=== PATIENT | female | born 1990 | race African-American/Black ===

== ENCOUNTER 2016-04-29 16:36 | Observation (INO) | payer BC, OTHER ==
[2014-08-22 22:21] VITALS: BP 156/106
[~2016-04-29 16:36] MED LIST: METF500T4 PO; birth control
[2016-04-29] MEDS ORDERED: IV RINGERS,LACTATED 1000ML 1,000 ML IV SCH (17:16)
[2016-04-29 18:41] LABS: BASO % 0 % (0-3); EOS % 1 % (0-3); HEMATOCRIT 30.8 % (36.0-47.0); HEMOGLOBIN 10.3 g/dL (12.0-15.5); LYMPH % 19 % (24-48); MEAN CORPUSCULAR HEMOGLOBIN 26 pg (25-35); MEAN CORPUSCULAR HGB CONC 33 g/dL (31-37); MEAN CORPUSCULAR VOLUME 77 fL (79-100); MONO % 8 % (0-9); NEUT % 72 % (31-73); PLATELET COUNT 308 x10^3/uL (140-400); RED BLOOD COUNT 4.01 x10^6/uL (3.50-5.40); RED CELL DISTRIBUTION WIDTH 15.3 % (11.5-14.5); WHITE BLOOD COUNT 10.4 x10^3/uL (4.0-11.0)
[2016-04-29 18:54] LABS: CREATININE 0.8 mg/dL (0.6-1.0); GFR 107.6; POTASSIUM 3.7 mmol/L (3.5-5.1)
[2016-04-29 19:01] LABS: ALBUMIN 2.5 g/dL (3.4-5.0); ALBUMIN/GLOBULIN RATIO 0.6 (1.0-1.7); TOTAL BILIRUBIN 0.3 mg/dL (0.2-1.0); TOTAL PROTEIN 6.9 g/dL (6.4-8.2)
[2016-05-01 14:13] LABS: PROTEIN 24 HR UR 758.7 mg/24 hr (30.0-150.0); TOTAL SERUM CREATININE 0.78 mg/dL (0.57-1.00); TOTAL URINE CREATININE 199.9 mg/dL (Not Estab.)
== END 2016-04-29 20:20 | disposition home or self-care (01) ==
LOC: 3 SO LND 16:36
PROVIDERS: ADMIT Obstetrics & Gynecology; ATTEND Obstetrics & Gynecology
DX: O12.13 Gestational proteinuria, third trimester (principal); O26.893 Other specified pregnancy related conditions, third trimester; R03.0 Elevated blood-pressure reading, without diagnosis of hypertension; Z3A.37 37 weeks gestation of pregnancy
CPT/HCPCS: 36415; 80053; 82575; 84156; 85027; G0378; G0379

== ENCOUNTER 2017-01-12 10:09 | Emergency (ER) | payer BC, OTHER ==
[~2017-01-12] VITALS: Ht 170.2 cm; Wt 125.6 kg
[2017-01-12 10:25] VITALS: BP 173/81
[2017-01-12 11:15] LABS: BASO # 0.1 x10^3/uL (0.0-0.2); BASO % 1 % (0-3); EOS % 2 % (0-3); HEMATOCRIT 40.9 % (36.0-47.0); LYMPH # 2.3 x10^3/uL (1.0-4.8); LYMPH % 28 % (24-48); MEAN CORPUSCULAR HEMOGLOBIN 28 pg (25-35); MEAN CORPUSCULAR HGB CONC 34 g/dL (31-37); MEAN CORPUSCULAR VOLUME 81 fL (79-100); MONO % 8 % (0-9); NEUT % 61 % (31-73); PLATELET COUNT 296 x10^3/uL (140-400); RED BLOOD COUNT 5.08 x10^6/uL (3.50-5.40); RED CELL DISTRIBUTION WIDTH 14.3 % (11.5-14.5); WHITE BLOOD COUNT 8.3 x10^3/uL (4.0-11.0)
[2017-01-12 11:24] LABS: CALCIUM 9.6 mg/dL (8.5-10.1); CREATININE 1.1 mg/dL (0.6-1.0); GFR 73.8
[2017-01-12 11:29] LABS: ALBUMIN 3.4 g/dL (3.4-5.0); ALBUMIN/GLOBULIN RATIO 0.7 (1.0-1.7); TOTAL BILIRUBIN 0.4 mg/dL (0.2-1.0)
--- NOTE | 2017-01-12 12:02 | PHYS DOC ---
Past Medical History Past Medical History: Diabetes-Type II Past Surgical History: No Surgical History Alcohol Use: None Drug Use: None Adult General Chief Complaint Chief Complaint: ABSCESS [facility] HPI Patient is a 26 year old female presents to the emergency department stating that she has an abscess on her upper abdomen the epigastric area and on the right side of her neck on the anterior part. Patient also states that she has been having high blood pressure and is on medication however medication gives her headache and so she stopped taking the medication. She states this was provided to her by her RN INTERN after . Patient also states that she has a history of diabetes in the family and has had recent urinary frequency with increased thirst. Patient states she has not followed up with a primary care physician in the above symptoms. Review of Systems Review of Systems Constitutional: Denies fever or chills [] Eyes: Denies change in visual acuity, redness, or eye pain [] HENT: Denies nasal congestion or sore throat [] Respiratory: Denies cough or shortness of breath [] Cardiovascular: No additional information not addressed in HPI [] GI: Denies abdominal pain, nausea, vomiting, bloody stools or diarrhea [] : Denies dysuria or hematuria [] Musculoskeletal: Denies back pain or joint pain [] Integument: Denies rash or skin lesions. Complaint of abscess on the abdomen and anterior neck. Neurologic: Denies headache, focal weakness or sensory changes [] Endocrine: polyuria or polydipsia [] Current Medications Current Medications Current Medications Medications (Trade) Dose Ordered Sig/[facility] Start Time Stop Time Status Last Admin Dose Admin Sodium Chloride 1,000 ml @ 1,000 mls/hr 1X ONCE 01/12/17 12:45 01/12/17 13:44 01/12/17 12:05 1,000 MLS/HR Allergies Allergies Allergies Coded Allergies Type Severity Reaction Last Updated Verified No Known Drug Allergies 09/20/13 No Physical Exam Physical Exam Constitutional: Well developed, well nourished, no acute distress, non-toxic appearance. [] HENT: Normocephalic, atraumatic, bilateral external ears normal, oropharynx moist, no oral exudates, nose normal. [] Eyes: PERRLA, EOMI, conjunctiva normal, no discharge. [] Neck: Normal range of motion, no tenderness, supple, no stridor. [] Cardiovascular:Heart rate regular rhythm, no murmur [] Lungs & Thorax: Bilateral breath sounds clear to auscultation [] Skin: Warm, dry, no erythema, no rash. Patient with 2 areas noted one on the anterior neck, and the epigastric area that appears to be less than a quarter size in diameter no redness warmth or tenderness noted however the areas do appear to be nonfluctuant. No drainage noted. Extremities: No tenderness, no cyanosis, no clubbing, ROM intact, no edema. [] Neurologic: Alert and oriented X 3, normal motor function, normal sensory function, no focal deficits noted. [] Psychologic: Affect normal, judgement normal, mood normal. [] Current Patient Data Vital Signs Vital Signs Date Time Temp Pulse Resp B/P (MAP) Pulse Ox O2 Delivery O2 Flow Rate FiO2 01/12/17 10:25 98.4 102 18 97 Room Air 98.4 Lab Values Laboratory Tests Test 01/12/17 10:57 01/12/17 11:10 Glucose (Fingerstick) 365 mg/dL (70-99) H White Blood Count 8.3 x10^3/uL (4.0-11.0) Red Blood Count 5.08 x10^6/uL (3.50-5.40) Hemoglobin 14.0 g/dL (12.0-15.5) Hematocrit 40.9 % (36.0-47.0) Mean Corpuscular Volume 81 fL (79-100) Mean Corpuscular Hemoglobin 28 pg (25-35) Mean Corpuscular Hemoglobin Concent 34 g/dL (31-37) Red Cell Distribution Width 14.3 % (11.5-14.5) Platelet Count 296 x10^3/uL (140-400) Neutrophils (%) (Auto) 61 % (31-73) Lymphocytes (%) (Auto) 28 % (24-48) Monocytes (%) (Auto) 8 % (0-9) Eosinophils (%) (Auto) 2 % (0-3) Basophils (%) (Auto) 1 % (0-3) Neutrophils # (Auto) 5.1 x10^3uL (1.8-7.7) Lymphocytes # (Auto) 2.3 x10^3/uL (1.0-4.8) Monocytes # (Auto) 0.6 x10^3/uL (0.0-1.1) Eosinophils # (Auto) 0.2 x10^3/uL (0.0-0.7) Basophils # (Auto) 0.1 x10^3/uL (0.0-0.2) Sodium Level 139 mmol/L (136-145) Potassium Level 4.0 mmol/L (3.5-5.1) Chloride Level 100 mmol/L (98-107) Carbon Dioxide Level 24 mmol/L (21-32) Anion Gap 15 (6-14) H Blood Urea Nitrogen 12 mg/dL (7-20) Creatinine 1.1 mg/dL (0.6-1.0) H Estimated GFR (Cockcroft-Gault) 73.8 BUN/Creatinine Ratio 11 (6-20) Glucose Level 375 mg/dL (70-99) H Calcium Level 9.6 mg/dL (8.5-10.1) Total Bilirubin 0.4 mg/dL (0.2-1.0) Aspartate Amino Transferase (AST) 16 U/L (15-37) Alanine Aminotransferase (ALT) 25 U/L (14-59) Alkaline Phosphatase 104 U/L (46-116) Total Protein 8.0 g/dL (6.4-8.2) Albumin 3.4 g/dL (3.4-5.0) Albumin/Globulin Ratio 0.7 (1.0-1.7) L Laboratory Tests 01/12/17 11:10 Laboratory Tests 01/12/17 11:10 EKG EKG [] Radiology/Procedures Radiology/Procedures [] Course & Med Decision Making Course & Med Decision Making Pertinent Labs and Imaging studies reviewed. (See chart for details) Patient's bedside glucose was elevated, CBC CMP was obtained she was provided with IV fluids 1 L she'll be discharged home on metformin as well as Bactrim. Patient was recommended to use warm moist packs on the abscessed areas. Recommended following up with a primary care physician for further evaluation of her glucose as well as the abscess. Patient agrees with discharge instructions treatment regimens and follow-up recommendations. Since symptoms to return back to emergency department as been provided. All questions and concerns been answered at patient's bedside. [] Dragon Disclaimer Dragon Disclaimer This electronic medical record was generated, in whole or in part, using a voice recognition dictation system. Departure Departure Impression: Primary Impression: Abscess Additional Impression: Hyperglycemia Disposition: 01 HOME, SELF-CARE Condition: STABLE Referrals: NO PCP (PCP) Patient Instructions: Abscess, [id number], Hyperglycemia, [id number] Additional Instructions: Your glucose was elevated here in the emergency department as well as her blood pressure. You will be placed on metformin to help bring her glucoses down within normal limits however you will need to monitor her glucoses and follow-up the primary care physician for further treatment and evaluation. Bactrim for the abscessed areas. This medication will be taken twice daily. Warm moist packs to the areas 4-5 times a day. Follow-up with primary care physician within the next 3-5 days. Return back to emergency prior signs symptoms of become worse. Scripts Sulfamethoxazole/Trimethoprim (BACTRIM DS TABLET) 1 Each Tablet 1 TAB PO BID, #20 TAB Prov: JOANNE JOSHUA APRN 01/12/17 Gabapentin (GABAPENTIN) 300 Mg Capsule 300 MG PO BID, #30 CAP Prov: JOANNE JOSHUA APRN 01/12/17 Problem Qualifiers JOANNE JOSHUA APRN Jan 12, 2017 12:02
[2017-01-12] MEDS ORDERED: SULF1TAB24 PO (12:24)
[2017-01-12] MEDS ORDERED: GABA-586 PO (12:24)
[2017-01-12] MEDS ORDERED: IV NORMAL SALINE 1000ML BAG 1,000 ML IV ONE (12:45)
== END 2017-01-12 13:12 | disposition home or self-care (01) ==
LOC: ER 10:09
DX: L02.211 Cutaneous abscess of abdominal wall (principal); E11.65 Type 2 diabetes mellitus with hyperglycemia
CPT/HCPCS: 36415; 80053; 82962; 85025; 96360; 99284; J7030

== ENCOUNTER → 2017-07-04 | Outpatient (CLI) | payer BC | END | disposition home or self-care (01) | LOC: US 08:03 | DX: O09.92 Supervision of high risk pregnancy, unspecified, second trimester (principal); O26.842 Uterine size-date discrepancy, second trimester; Z3A.20 20 weeks gestation of pregnancy | CPT/HCPCS: 76805 ==

== ENCOUNTER 2017-09-22 10:59 | Observation (INO) | payer OTHER ==
[2017-09-22] MEDS ORDERED: IV RINGERS,LACTATED 1000ML 1,000 ML IV (11:45)
[2017-09-22 11:50] LABS: AMNIO PT NEGATIVE; NEG OBC AMNIO NEG; POS OBC AMNIO POS
[2017-09-22 11:55] LABS: BILIRUBIN,URINE NEGATIVE (NEG); CLARITY,URINE CLOUDY; COLOR,URINE YELLOW; GLUCOSE,URINE 100 mg/dL (NEG); NITRITE,URINE NEGATIVE (NEG); PH,URINE 6.5; PROTEIN,URINE NEGATIVE (NEG-TRACE)
[2017-09-22 12:24] LABS: BACTERIA,URINE MODERATE /HPF (0-FEW); RBC,URINE OCC /HPF (0-2); SQUAMOUS EPITHELIAL CELL,UR MANY /LPF
== END 2017-09-22 12:30 | disposition home or self-care (01) ==
LOC: 3 SO LND 10:59
DX: O26.893 Other specified pregnancy related conditions, third trimester (principal); N89.8 Other specified noninflammatory disorders of vagina; R10.30 Lower abdominal pain, unspecified; Z3A.32 32 weeks gestation of pregnancy
CPT/HCPCS: 36415; 81001; 84112; 87086; G0378; G0379

== ENCOUNTER 2017-11-07 06:24 | Inpatient (IN) | payer BC, OTHER ==
[2017-11-07] MEDS ORDERED: ONDANSETRON PF 4 MG/2 ML VIAL. IV (06:45)
[2017-11-07] MEDS ORDERED: IBUPROFEN 800 MG TABLET. PO (06:45)
[2017-11-07] MEDS ORDERED: OXYTOCIN 30 UNIT/500 ML PREMIX 500 ML IV (06:45)
[2017-11-07] MEDS ORDERED: LIDOCAINE 1% PF 30 ML VIAL. INJ (06:45)
[2017-11-07] MEDS ORDERED: TERBUTALINE 1 MG/ML VIAL. SQ (06:45)
[2017-11-07] MEDS ORDERED: BUTORPHANOL 2 MG/ML VIAL. IV ×2 (06:45)
[2017-11-07] MEDS ORDERED: fentaNYL PF VIAL 100 MCG/2 ML VIAL IV (06:45)
[2017-11-07] MEDS ORDERED: ACETAMINOPHEN 325 MG TABLET. PO (06:45)
[2017-11-07] MEDS ORDERED: 0.9 % SODIUM CHLORIDE 10 ML DISP.SYRIN. IV (06:45)
[2017-11-07 07:23] LABS: ADD MAN DIFF? NO
[2017-11-07 07:26] LABS: BASO # 0.1 x10^3/uL (0.0-0.2); BASO % 1 % (0-3); EOS # 0.2 x10^3/uL (0.0-0.7); EOS % 2 % (0-3); HEMATOCRIT 33.5 % (36.0-47.0); HEMOGLOBIN 11.2 g/dL (12.0-15.5); LYMPH % 20 % (24-48); MEAN CORPUSCULAR HEMOGLOBIN 27 pg (25-35); MEAN CORPUSCULAR HGB CONC 34 g/dL (31-37); MEAN CORPUSCULAR VOLUME 80 fL (79-100); MONO # 0.6 x10^3/uL (0.0-1.1); MONO % 6 % (0-9); NEUT # 7.3 x10^3uL (1.8-7.7); NEUT % 72 % (31-73); PLATELET COUNT 286 x10^3/uL (140-400); RED BLOOD COUNT 4.17 x10^6/uL (3.50-5.40); RED CELL DISTRIBUTION WIDTH 14.4 % (11.5-14.5); WHITE BLOOD COUNT 10.2 x10^3/uL (4.0-11.0)
[2017-11-07] MEDS: IV RINGERS,LACTATED 1000ML 1,000 ML IV ×2 (07:28→14:29)
[2017-11-07 07:32] LABS: GLUCOSE 132 mg/dL (70-99)
[2017-11-07] MEDS: OXYTOCIN 30 UNIT/500 ML PREMIX 500 ML IV (07:53)
[2017-11-07] MEDS: PENICILLIN G K 5,000,000 UNIT in IV DEXTROSE 5% 100ML 100 ML IV (07:54)
[2017-11-07] MEDS: PENICILLIN G K 2,500,000 UNIT in IV DEXTROSE 5% 50 ML IV (11:50)
[2017-11-07 15:37] LABS: POC GLUCOSE 130 mg/dL (70-99)
[2017-11-07] MEDS: DINOPROSTONE 10 MG SUPP.VAG VG (16:57)
[2017-11-07 20:30] LABS: POC GLUCOSE 143 mg/dL (70-99)
[2017-11-07] MEDS: diphenhydrAMINE HCL 25 MG CAPSULE PO (23:06)
[2017-11-08] MEDS: PENICILLIN G K 2,500,000 UNIT in IV DEXTROSE 5% 50 ML IV ×2 (06:00→10:31)
[2017-11-08] MEDS ORDERED: OXYTOCIN PREMIX 30 UNIT/500 ML BAG. IV (06:00)
[2017-11-08 06:12] LABS: POC GLUCOSE 120 mg/dL (70-99)
[2017-11-08] MEDS: IV NORMAL SALINE 1000ML BAG 1,000 ML IV (08:11)
[2017-11-08] MEDS ORDERED: ROPIVacaine 0.5% PF 30 ML VIAL. (08:58)
[2017-11-08] MEDS ORDERED: IV RINGERS,LACTATED 1000ML 1,000 ML IV (09:54)
[2017-11-08] MEDS ORDERED: fentaNYL PF VIAL 100 MCG/2 ML VIAL EPI (10:00)
[2017-11-08] MEDS ORDERED: NALOXONE 0.4 MG/ML VIAL. IV (10:00)
[2017-11-08] MEDS ORDERED: ONDANSETRON PF 4 MG/2 ML VIAL. IV (10:00)
[2017-11-08] MEDS ORDERED: ROPIVacaine 0.2% IN 0.9%NACL PF 40 MG/20 ML DISP.SYRIN. EPI (10:00)
[2017-11-08] MEDS ORDERED: ePHEDrine PF IN SALINE 50 MG/5 ML DISP.SYRIN IV (10:00)
[2017-11-08] MEDS ORDERED: L&D EPIDURAL SYRINGE 50 ML EP (10:03)
[2017-11-08] MEDS ORDERED: METHYLERGONOVINE MALEATE 0.2 MG/ML VIAL. IM ×2 (11:00→12:26)
[2017-11-08] MEDS ORDERED: L&D EPIDURAL 50 ML SYRINGE. EP (11:00)
[2017-11-08] MEDS ORDERED: PHENYLEPH/MINERAL OIL/PETROLAT RECTAL OINTMENT 28GM TUBE. RC (13:30)
[2017-11-08] MEDS ORDERED: HYDROCORTISONE 1% TOPICAL OINTMENT 30GM TUBE. TP (13:30)
[2017-11-08] MEDS ORDERED: SIMETHICONE 80 MG TAB.CHEW PO (13:30)
[2017-11-08] MEDS ORDERED: MMR per PROTOCOL. MC (13:30)
[2017-11-08] MEDS ORDERED: ACETAMINOPHEN 325 MG TABLET. PO (13:30)
[2017-11-08] MEDS ORDERED: ZOLPIDEM 5 MG TABLET. PO (13:30)
[2017-11-08] MEDS ORDERED: MAGNESIUM HYDROXIDE 2,400 MG/30 ML ORAL.SUSP. PO (13:30)
[2017-11-08] MEDS ORDERED: diphenhydrAMINE HCL 25 MG CAPSULE PO (13:30)
[2017-11-08] MEDS ORDERED: MAG HYDROX/ALUMINUM HYD/SIMETH 30 ML ORAL.SUSP PO (13:30)
[2017-11-08] MEDS ORDERED: 0.9 % SODIUM CHLORIDE 10 ML DISP.SYRIN. IV (13:30)
[2017-11-08] MEDS ORDERED: OXYTOCIN 30 UNIT/500 ML PREMIX 500 ML IV (13:30)
[2017-11-08] MEDS: OXYTOCIN 30 UNIT/500 ML PREMIX 500 ML IV (14:06)
[2017-11-08] MEDS: BENZOCAINE 20% TOPICAL AEROSOL SPRAY 57GM CAN. TP (15:53)
[2017-11-08] MEDS: IBUPROFEN 800 MG TABLET. PO (15:53)
[2017-11-08] MEDS: diphenhydrAMINE HCL 25 MG CAPSULE PO (17:10)
[2017-11-08] MEDS: DOCUSATE SODIUM 100 MG CAPSULE. PO (17:10)
[2017-11-08] MEDS: oxyCODONE/APAP 5/325 1 TAB TABLET PO (22:35)
[2017-11-09] MEDS: IBUPROFEN 800 MG TABLET. PO ×3 (01:09→17:13)
[2017-11-09 03:57] LABS: ADD MAN DIFF? NO
[2017-11-09 04:03] LABS: BASO # 0.1 x10^3/uL (0.0-0.2); BASO % 0 % (0-3); EOS # 0.2 x10^3/uL (0.0-0.7); EOS % 1 % (0-3); HEMATOCRIT 30.9 % (36.0-47.0); HEMOGLOBIN 10.5 g/dL (12.0-15.5); LYMPH # 3.2 x10^3/uL (1.0-4.8); LYMPH % 22 % (24-48); MEAN CORPUSCULAR HEMOGLOBIN 27 pg (25-35); MEAN CORPUSCULAR HGB CONC 34 g/dL (31-37); MEAN CORPUSCULAR VOLUME 80 fL (79-100); MONO % 7 % (0-9); NEUT # 10.2 x10^3uL (1.8-7.7); NEUT % 70 % (31-73); PLATELET COUNT 269 x10^3/uL (140-400); RED BLOOD COUNT 3.85 x10^6/uL (3.50-5.40); RED CELL DISTRIBUTION WIDTH 14.3 % (11.5-14.5); WHITE BLOOD COUNT 14.6 x10^3/uL (4.0-11.0)
[2017-11-09] MEDS ORDERED: FERROUS SULFATE 325 MG TABLET. PO (08:00)
[2017-11-09] MEDS: DOCUSATE SODIUM 100 MG CAPSULE. PO ×2 (09:20→17:13)
[2017-11-09] MEDS: oxyCODONE/APAP 5/325 1 TAB TABLET PO (12:10)
== END 2017-11-09 18:36 | disposition home or self-care (01) | DRG 774 ==
LOC: 3 SO LND 06:24 → 3 NORTH 11-08 16:00
PROVIDERS: Obstetrics & Gynecology
PROC: 10E0XZZ Delivery of Products of Conception, External Approach (ICD-10-PCS; principal; 2017-11-08)
PROC: 10907ZC Drainage of Amniotic Fluid, Therapeutic from Products of Conception, Via Natural or Artificial Opening (ICD-10-PCS; 2017-11-08)
PROC: 3E0R3BZ Introduction of Anesthetic Agent into Spinal Canal, Percutaneous Approach (ICD-10-PCS; 2017-11-08)
PROC: 00HU33Z Insertion of Infusion Device into Spinal Canal, Percutaneous Approach (ICD-10-PCS; 2017-11-08)
DX: O99.824 Streptococcus B carrier state complicating childbirth (principal); O10.02 Pre-existing essential hypertension complicating childbirth; O24.420 Gestational diabetes mellitus in childbirth, diet controlled; Z37.0 Single live birth; Z3A.38 38 weeks gestation of pregnancy
CPT/HCPCS: 36415; 82947; 82962; 85025; 86592; 86850; 86900; 86901; J2210; J2540; J2590; J2795; J7030; J7120; Q0163

== ENCOUNTER 2018-05-05 11:03 | Emergency (ER) | payer BC, OTHER ==
[~2018-05-05] VITALS: Ht 170.2 cm; Wt 114.8 kg
[~2018-05-05 11:03] MED LIST changes: +GABA300C18 PO; +IBUP800T19 PO; +METF500T16 PO; -METF500T4 PO; +SULF1TAB24 PO
[2018-05-05] MEDS ORDERED: NAPROXEN 500 MG TABLET PO STA (11:23)
[2018-05-05] MEDS ORDERED: LIDOCAINE WITH 8.4% SOD BICARB 3 ML DISP.SYRIN. INJ ONE (11:30)
[2018-05-05] MEDS ORDERED: HYDROcodone/APAP 5/325MG 1 TAB TABLET PO ONE (11:30)
--- NOTE | 2018-05-05 11:41 | PHYS DOC ---
Past Medical History Past Medical History: Diabetes-Type II Past Surgical History: No Surgical History Alcohol Use: None Drug Use: None Adult General Chief Complaint Chief Complaint: ABSCESS HPI HPI Patient is a 27 year old female with no significant medical history who presents today complaining of vaginal itching that began a week ago, patient states yesterday she noted swelling on her right labia. Patient denies any fever. Denies any chance she is . Denies any concerns for STDs. Review of Systems Review of Systems Constitutional: Denies fever or chills [] Eyes: Denies change in visual acuity, redness, or eye pain [] HENT: Denies nasal congestion or sore throat [] Respiratory: Denies cough or shortness of breath [] Cardiovascular: No additional information not addressed in HPI [] GI: Denies abdominal pain, nausea, vomiting, bloody stools or diarrhea [] Reports vaginal itching : Denies dysuria or hematuria [] Musculoskeletal: Denies back pain or joint pain [] Integument: Reports right labial abscess. Neurologic: Denies headache, focal weakness or sensory changes [] All other systems were reviewed and found to be within normal limits, except as documented in this note. Current Medications Current Medications Current Medications Medications (Trade) Dose Ordered Sig/[facility] Start Time Stop Time Status Last Admin Dose Admin Acetaminophen/ Hydrocodone Bitart (Lortab 5/325) 2 tab 1X ONCE 05/05/18 11:30 05/05/18 11:31 DC 05/05/18 11:36 2 TAB Lidocaine/Sodium Bicarbonate (Buffered Lidocaine 1%) 6 ml 1X ONCE 05/05/18 11:30 05/05/18 11:31 DC 05/05/18 11:35 6 ML Naproxen (Naprosyn) 500 mg 1X STAT 05/05/18 11:23 05/05/18 11:26 DC 05/05/18 11:36 500 MG Allergies Allergies Allergies Coded Allergies Type Severity Reaction Last Updated Verified No Known Drug Allergies 09/20/13 No Physical Exam Physical Exam Constitutional: Well developed, well nourished, no acute distress, non-toxic appearance. [] HENT: Normocephalic, atraumatic, bilateral external ears normal, oropharynx moist, no oral exudates, nose normal. [] Eyes: PERRLA, EOMI, conjunctiva normal, no discharge. [] Neck: Normal range of motion, no tenderness, supple, no stridor. [] Cardiovascular:Heart rate regular rhythm, no murmur [] Lungs & Thorax: Bilateral breath sounds clear to auscultation [] Abdomen: Bowel sounds normal, soft, no tenderness, no masses, no pulsatile masses. [] Female . Right labia with her own doctor swollen area consistent with a Bartholin cyst, no erythema, the area feels forearm. No fluctuance. No redness. Cervix not well visualized due to patient's body habitus. Trace amount of brownish discharge noted in the vaginal vault consistent with spotting, no adnexal tenderness, no CMT. Skin: see female Back: No tenderness, no CVA tenderness. [] Extremities: No tenderness, no cyanosis, no clubbing, ROM intact, no edema. [] Neurologic: Alert and oriented X 3, normal motor function, normal sensory function, no focal deficits noted. [] Psychologic: Affect normal, judgement normal, mood normal. [] Current Patient Data Vital Signs Vital Signs Date Time Temp Pulse Resp B/P (MAP) Pulse Ox O2 Delivery O2 Flow Rate FiO2 05/05/18 13:30 82 18 124/78 (93) 99 Room Air 05/05/18 11:10 98.3 98.3 Lab Values Microbiology 05/05/18 Wet Prep - Final, Complete EKG EKG [] Radiology/Procedures Radiology/Procedures Indication: Right labial Bartholin cyst Procedure: The patient was positioned appropriately. Local anesthesia was 6 mL of buffered lidocaine. An incision was then made over the apex of the lesion and mild amount of yellow bloody material was expressed. The drainage cavity was irrigated and Bartholin cyst catheter was inserted, 5 cc used to inflate the ballon. The patient�s tetanus status updated as needed. The patient tolerated the procedure well. Complications: none.[] Course & Med Decision Making Course & Med Decision Making Pertinent Labs and Imaging studies reviewed. (See chart for details) This is a 27-year-old female patient presenting to the ED today with physical exam consistent of Bartholin's cyst. Symptoms for 1 week. Tetanus was up to date. Cyst was drained in the ED and the Bartholin's cyst catheter was placed to the area. Patient was instructed to apply warm compresses to the area, patient was instructed to return in 2 days for catheter removal as well as wound check. Staff Physician Addendum: I was working in the ER during the course of this patient's visit. I was available for consultation as needed, but I was not directly involved in the care of this patient. Dragon Disclaimer Dragon Disclaimer This electronic medical record was generated, in whole or in part, using a voice recognition dictation system. Departure Departure Impression: Primary Impression: Bartholin cyst Disposition: HOME, SELF-CARE Condition: STABLE Referrals: NO PCP (PCP) follow up with the ED in 2 days for catheter removal and wound check Patient Instructions: Bartholin's Cyst and Abscess-Brief Additional Instructions: You have a Bartholin's cyst. We inserted a catheter to the area, come back to the ED in 2 days for catheter removal and wound check. Apply warm compresses to the area twice a day. Take the prescribed pain medicine as needed for pain. Scripts Hydrocodone/Apap 5-325 (NORCO 5-325 TABLET) 1 Each Tablet 1 TAB PO Q6HRS PRN for PAIN, #20 TAB Prov: PEYTON BAISN APRN 05/05/18 PEYTON BAINS APRN May 05, 2018 11:41 MULU COLLIER MD May 05, 2018 15:37
[2018-05-05 13:30] VITALS: BP 124/78
[2018-05-05] MEDS ORDERED: HYDR-3164 PO (13:44)
[2018-05-07 14:23] LABS: GC PROBE Negative (Negative)
== END 2018-05-05 14:02 | disposition home or self-care (01) ==
LOC: ER 11:03
DX: N75.0 Cyst of Bartholin's gland (principal); N75.1 Abscess of Bartholin's gland; E11.9 Type 2 diabetes mellitus without complications
CPT/HCPCS: 56420; 87491; 87591; 99283; Q0111

== ENCOUNTER 2021-03-09 11:22 | Observation (INO) | payer BC ==
[~2021-03-09] VITALS: Ht 170.2 cm; Wt 119.0 kg
[~2021-03-09 11:22] MED LIST changes: +HYDR-3164 PO
[2021-03-09 12:35] LABS: BILIRUBIN,URINE NEGATIVE (NEG); CLARITY,URINE CLEAR; COLOR,URINE YELLOW; NITRITE,URINE NEGATIVE (NEG); PH,URINE 6.5 (<5.0-8.0); PROTEIN,URINE NEGATIVE (NEG-TRACE); UROBILINOGEN,URINE 0.2 mg/dL (0.2 mg/dL)
[2021-03-09 12:42] LABS: BACTERIA,URINE MODERATE /HPF (0-FEW); RBC,URINE OCC /HPF (0-2)
--- NOTE | 2021-03-09 13:39 | RAD ---
EXAM: OB ULTRASOUND, > 14 WEEKS HISTORY: Cramping. COMPARISON: None. TECHNIQUE: Multiple grayscale images, color Doppler, and M-mode images of the uterus are obtained. FINDINGS: There is a single intrauterine gestation in cephalic presentation. The placenta is grade 1 and press brake operator ior in location without evidence of placenta previa. The amount of amniotic fluid volume is grossly n ormal. The cervix measures 4.5 cm in length. Biometrical data: BPD = 4.90 cm for 20 weeks 6 days. HC = 18.43 cm for 20 weeks 6 days. AC = 13.99 cm for 19 weeks 3 days. FL = 3.26 cm for 20 weeks 1 days. HC/AC ratio = 1.3. Overall, the estimated sonographic gestational age is 20 weeks and 2 days for an estimated date of de livery of 07/25/2021. The estimated date of delivery provided by the last menstrual period is 07/24/2021. Estimated weight is 319 grams. A 4 chamber heart is identified with positive cardiac activity. The estimated heart rate is 149 beats per minute. Bilateral upper and lower extremities are identified. There is a three-vessel cord with cord insertion visualized. stomach and urinary bladder are identified. Both kidneys are seen. The spine and brain are unremarkable. No obvious anatomic abnormalities are identified. The maternal adnexal regions are unremarkable. IMPRESSION: 1. Single intrauterine fetus with normal heart rate and gestational age based on ultrasound measureme nts of 20 weeks and 2 days. 2. Unremarkable anatomy survey. Electronically signed by: Kayla Christensen MD (03/09/2021 1:37 PM) [id number]
[2021-03-09] MEDS: IV RINGERS,LACTATED 1000ML 1,000 ML IV PRN ×2 (13:51→15:40)
== END 2021-03-09 17:40 | disposition home or self-care (01) ==
LOC: 3 SO LND 11:22
DX: O62.9 Abnormality of forces of labor, unspecified (principal); O26.892 Other specified pregnancy related conditions, second trimester; N89.8 Other specified noninflammatory disorders of vagina; O42.912 Preterm premature rupture of membranes, unspecified as to length of time between rupture and onset of labor, second trimester; Z3A.20 20 weeks gestation of pregnancy; Z79.899 Other long term (current) drug therapy; Z98.890 Other specified postprocedural states
CPT/HCPCS: 59025; 76805; 81001; 87086; G0378; G0379; J7120